=== PATIENT | male | born 1980 ===

== ENCOUNTER 2018-04-17 14:10 | Emergency (ER) | payer OTHER ==
[2018-04-17 14:19] VITALS: BP 137/74; PULSE 78; RESP 16; TEMP 98.6; O2SAT 99; BMI 29.2
[2018-04-17] MEDS ORDERED: Absorbable Gelatin Sponge Size 12-7 TP ONE (14:39)
[2018-04-17] MEDS ORDERED: Lidocaine 1% Inj (20ml) INFIL ONE (14:40)
[2018-04-17] MEDS ORDERED: ceFAZolin IV 1 gm in Dextrose 1 GM/50 ML BAG IVPB ONE (15:00)
--- NOTE | 2018-04-17 15:07 | ED PDOC ---
HPI: Skin/Bite Injury Time Seen by Provider: 04/17/18 14:41 Chief Complaint (Nursing): Abnormal Skin Integrity Chief Complaint (Provider): Abnormal Skin Integrity History Per: Patient History/Exam Limitations: no limitations Onset/Duration Of Symptoms: Mins (just prior to arrival) Current Symptoms Are (Timing): Still Present Location Of Injury: Left: Hand (index finger) Quality Of Symptoms: Painful, Draining (blood) Severity: Moderate Additional Complaint(s): 37 year old male with no past medical history presents to the ED for an evaluation of a left index finger injury that occurred just prior to arrival. Patient reports that he was doing woodwork, when he accidentally sustained an injury to his left index finger. Patient is right hand dominant. Patient denies having any other complaints. Tetanus is up to date. PMD: None provided Past Medical History Reviewed: Historical Data, Nursing Documentation, Vital Signs Vital Signs: Last Vital Signs Temp 98.6 F 04/17/18 14:18 Pulse 78 04/17/18 14:18 Resp 16 04/17/18 14:18 BP 137/74 04/17/18 14:18 Pulse Ox 99 04/17/18 14:18 CHAITANYA Report Viewed: Yes - Medical History PMH: No Chronic Diseases - Surgical History Surgical History: No Surg Hx - Family History Family History: States: No Known Family Hx - Social History Current smoker - smoking cessation education provided: Yes (rarely) Alcohol: None Drugs: Cannabis - Immunization History Hx Tetanus Toxoid Vaccination: Yes (up to date, 2x years ago) - Home Medications Home Medications: Ambulatory Orders Medication Instructions Recorded Dicyclomine [Bentyl] 20 mg PO Q6H PRN #20 tab 09/14/15 RX: Cephalexin [Keflex] 500 mg PO TID #15 capsule 04/17/18 - Allergies Allergies/Adverse Reactions: Allergies Allergy/AdvReac Type Severity Reaction Status Date / Time No Known Allergies Allergy Verified 09/14/15 03:55 Review of Systems ROS Statement: Except As Marked, All Systems Reviewed And Found Negative Musculoskeletal: Positive for: Other (left index finger pain due to injury) Physical Exam - Reviewed Nursing Documentation Reviewed: Yes Vital Signs Reviewed: Yes - Physical Exam Appears: Positive for: Well, Non-toxic, No Acute Distress Head Exam: Positive for: ATRAUMATIC, NORMOCEPHALIC Skin: Positive for: Normal Color, Warm, Dry Extremity: Positive for: Other (distal amputation of left distal finger. Able to flex and extend at DIP and PIP) Neurologic/Psych: Positive for: Alert, Oriented (3x) - ECG O2 Sat by Pulse Oximetry: 99 (RA) Pulse Ox Interpretation: Normal Medical Decision Making Medical Decision Makin:41 Initial impression: 37 year old male with a left index finger injury Initial plan: * XRay hand left 2nd digit * ancef IV 1 gm duplex 1 gm in 50 ml IVPB once * gelfoam size 12-7 1 spg TP once * lido 1% 20 ml, 1 ml INFIL once * toradol 15 mg IVP * reevaluation 15:00 XRay hand read and reviewed by me No fracture noted. Scribe Attestation: Documented by Sarita Oliver, acting as a scribe for Eleuterio Moon PA-C. Provider Scribe Attestation: All medical record entries made by the Scribe were at my direction and personally dictated by me. I have reviewed the chart and agree that the record accurately reflects my personal performance of the history, physical exam, medical decision making, and the department course for this patient. I have also personally directed, reviewed, and agree with the discharge instructions and disposition. Disposition - Clinical Impression Clinical Impression: Fingertip amputation - Patient ED Disposition Is Patient to be Admitted: No - Disposition Referrals: Roe Jordan MD [Staff Provider] - Disposition: Routine/Home Disposition Time: 15:40 Condition: IMPROVED Additional Instructions: RETURN IN 2 DAYS FOR WOUND EVALUATION RETURN IN 7 -10 DAYS FOR REMOVAL OF SUTURES. Prescriptions: RX: Cephalexin [Keflex] 500 mg PO TID #15 capsule Instructions: Amputation of the Finger or Fingertip (DC) Procedures - Time-Out Type of Procedure: 15:25 Site of Procedure: left index finger Correct Patient (with visual ID + MR# on ID Band): Yes Correct Procedure: Yes Correct Site Marked: Yes PA/Tech: Eleuterio Cortés Moon - Laceration/Wound Repair wound repair Wound Explored: clean Anesthesia: 1% Lidocaine Wound Repaired With: Sutures Number of Sutures: 3 Wound Complexity: Simple Progress: Lido 1% 3 sutures placed. Xeroform.
[2018-04-17] MEDS ORDERED: Lidocaine 1% Inj (20ml) ONE (15:16)
--- NOTE | 2018-04-17 17:00 | RAD ---
Date of service: 04/17/2018 PROCEDURE: Left Index finger radiographs. HISTORY: FINGER INJURY COMPARISON: None. TECHNIQUE: AP radiograph of the left hand, as well as spot oblique and lateral images of index finger were obtained. FINDINGS: LEFT INDEX FINGER: Note that bandages and gauze overlies the distal phalanx of the index finger. No definitive evidence of acute displaced fracture nor dislocation. There does appear to be disruption of the distal soft tissues however the given the overlying gauze evaluation somewhat limited. It is unclear whether the nailbed has been disrupted. There are several very tiny radiopaque-metallic like densities within the soft tissues of the proximal thumb extending into the web space and/or thenar eminence region. JOINTS: Joint spaces preserved. SOFT TISSUES: As above. OTHER FINDINGS: None. IMPRESSION: Limited study due to bandages and gauze which overlies the distal phalanx of the index finger diminishing soft tissue and bone detail. There appears to be disruption of the distal soft tissues however no definitive radiographic evidence of acute displaced fracture nor dislocation. It is unclear whether the nailbed has been disrupted. Clinical correlation recommended. There are several very tiny radiopaque-metallic like densities within the soft tissues of the proximal thumb extending into the web space and/or thenar eminence region.
== END 2018-04-17 16:18 | disposition home or self-care (01) ==
LOC: H.ER 14:10
DX: S68.622A Partial traumatic transphalangeal amputation of right middle finger, initial encounter (principal); W26.8XXA Contact with other sharp object(s), not elsewhere classified, initial encounter; Y92.89 Other specified places as the place of occurrence of the external cause
CPT/HCPCS: 12001; 73140; 96374; 99283; J0690; J1885

== ENCOUNTER 2018-04-19 11:46 | Emergency (ER) | payer OTHER ==
[2018-04-19 11:47] VITALS: BMI 29.2
[2018-04-19 12:00] VITALS: BP 129/82; PULSE 74; RESP 18; TEMP 98; O2SAT 99
--- NOTE | 2018-04-19 12:22 | ED PDOC ---
HPI: Wound Care - HPI Time Seen by Provider: 04/19/18 12:10 Chief Complaint (Nursing): Wound Check Chief Complaint (Provider): Wound Check History Per: Patient Exam Limitations: no limitations Onset/Duration Of Symptoms: Days (x2) Location Of Injury: Left: Hand (wound affecting distal phalanx which was traumatically amputated at approximately 5mm) Additional Complaint(s): 37 year old male presents to the ED for a wound check. Two days ago, patient reports coming to the ED s/p a wood shopping incident for sutures to the distal phalanx of his second digit, left hand. He was told to follow up today for a wound check. Otherwise, patient denies fever, chills, and wound complications. PMD: Wiliam Singh Past Medical History Reviewed: Historical Data, Nursing Documentation, Vital Signs Vital Signs: Last Vital Signs Temp 98 F 04/19/18 11:59 Pulse 74 04/19/18 11:59 Resp 18 04/19/18 11:59 BP 129/82 04/19/18 11:59 Pulse Ox 99 04/19/18 11:59 - Medical History PMH: No Chronic Diseases - Surgical History Surgical History: No Surg Hx - Family History Family History: States: Unknown Family Hx - Immunization History Hx Tetanus Toxoid Vaccination: Yes (up to date, 2x years ago) - Home Medications Home Medications: Ambulatory Orders Medication Instructions Recorded Dicyclomine [Bentyl] 20 mg PO Q6H PRN #20 tab 09/14/15 RX: Cephalexin [Keflex] 500 mg PO TID #15 capsule 04/17/18 - Allergies Allergies/Adverse Reactions: Allergies Allergy/AdvReac Type Severity Reaction Status Date / Time No Known Allergies Allergy Verified 09/14/15 03:55 Review of Systems ROS Statement: Except As Marked, All Systems Reviewed And Found Negative Constitutional: Negative for: Fever, Chills Skin: Positive for: Other (wound to distal phalanx of second digit, left hand) Physical Exam - Reviewed Nursing Documentation Reviewed: Yes Vital Signs Reviewed: Yes - Physical Exam Appears: Positive for: No Acute Distress Neck: Positive for: Normal, Painless ROM, Supple. Negative for: Decreased ROM Cardiovascular/Chest: Positive for: Regular Rate, Rhythm Respiratory: Positive for: Normal Breath Sounds Pulses-Carotid (L): 2+ Pulses-Carotid (R): 2+ Pulses-Radial (L): 2+ Pulses-Radial (R): 2+ Extremity: Positive for: Normal ROM (of all digits left hand), Other (left hand 2nd digit: healing wound with [address]) - ECG O2 Sat by Pulse Oximetry: 99 Medical Decision Making Medical Decision Making: Time: 1223 Initial Impression: wound check Initial Plan: --Tylenol 650mg PO --Wound rewrapped by ALEKSEY Ramos --Patient instructed to finish his course of antibiotics and follow up on 04/25/2018 with his PMD for suture removal. For pain, advised to take Tylenol and Motrin. --- -- Scribe Attestation: Documented by Cynthia Benz, acting as a scribe for Jenaro Machado PA-C. Provider Scribe Attestation: All medical record entries made by the Scribe were at my direction and personally dictated by me. I have reviewed the chart and agree that the record accurately reflects my personal performance of the history, physical exam, medical decision making, and the department course for this patient. I have also personally directed, reviewed, and agree with the discharge instructions and disposition. Disposition - Clinical Impression Clinical Impression: Encounter for wound re-check Counseled Patient/Family Regarding: Diagnosis, Need For Followup, Rx Given - Disposition Referrals: Wiliam Singh MD [Family Provider] - Disposition: Routine/Home Disposition Time: 12:57 Condition: STABLE Additional Instructions: Follow up with PMD 7 days after suture placement for suture removal Continue all Antibiotics until gone Keep wound clean and dry remove dressing in 3 days Instructions: Laceration Repair With Stitches (DC) Forms: [employer] (Palestinian)
== END 2018-04-19 12:56 | disposition home or self-care (01) ==
LOC: H.ER 11:46
DX: Z48.00 Encounter for change or removal of nonsurgical wound dressing (principal)